=== PATIENT | female | born 2000 | race Caucasian/White ===

== ENCOUNTER 2019-08-06 03:38 | Emergency (ER) | payer OTHER ==
[~2019-08-06] VITALS: Ht 157.5 cm; Wt 128.2 kg
--- NOTE | 2019-08-06 03:45 | NUR ---
RUQ pain that started around 2200 last night. states pain is associated with a lot of gas. pain /10. "comes in wave" at its worse is 03/11.
[2019-08-06] MEDS ORDERED: ONDANSETRON 2MG/ML, 2ML IVPush ONE (04:00)
[2019-08-06] MEDS ORDERED: MORPHINE SULFATE 4 MG/ML, 1ML IVPush PRN (04:00)
[2019-08-06] MEDS ORDERED: ONDANSETRON 2MG/ML, 2ML ONE (04:02)
[2019-08-06] MEDS ORDERED: MORPHINE SULFATE 4 MG/ML, 1ML ONE (04:02)
[2019-08-06 04:12] VITALS: BP 125/83
[2019-08-06 04:12] LABS: BASOPHILS # (AUTO) 0.03 x10^3/uL (0-0.3); BASOPHILS % (AUTO) 0 % (0-1); EOSINOPHILS # (AUTO) 0.24 x10^3/uL (0-0.8); EOSINOPHILS % (AUTO) 2 % (1-7); LYMPHOCYTES # (AUTO) 4.94 x10^3/uL (1-6.1); LYMPHOCYTES % (AUTO) 39 % (22-44); MD NO; MEAN CORPUSCULAR HEMOGLOBIN 19.8 pg (27.0-34.8); MEAN CORPUSCULAR HGB CONC 30.2 g/dL (32.4-35.8); MEAN CORPUSCULAR VOLUME 65.5 fL (80-100); MEAN PLATELET VOLUME 7.1 fL (7.4-10.4); MONOCYTES # (AUTO) 0.97 x10^3/uL (0-1.4); MONOCYTES % (AUTO) 8 % (2-9); NEUTROPHILS # (AUTO) 6.47 x10^3/uL (1.8-8.0); NEUTROPHILS % (AUTO) 51 % (42-75); PLATELET COUNT 722 x10^3/uL (130-400); RED BLOOD COUNT 4.45 x10^6/uL (3.82-5.3); RED CELL DISTRIBUTION WIDTH 19.3 % (9.6-15.2)
[2019-08-06 04:17] LABS: MICROSCOPIC AUTO
[2019-08-06 04:21] LABS: CULTURE INDICATED? YES
[2019-08-06 04:26] LABS: ALANINE AMINOTRANSFERASE 19 U/L (12-78); ALBUMIN 3.1 g/dL (3.4-5.0); ANION GAP 6 mmol/L (5-15); CALCIUM 8.7 mg/dL (8.5-10.1); CHLORIDE 107 mmol/L (98-107); CREATININE 0.87 mg/dL (0.55-1.02)
--- NOTE | 2019-08-06 04:29 | NUR ---
PT TO US AT THIS TIME
[2019-08-06 04:30] LABS: ALKALINE PHOSPHATASE 106 U/L (45-117); BILIRUBIN,TOTAL 0.2 mg/dL (0.2-1.0); TOTAL PROTEIN 8.7 g/dL (6.4-8.2)
== END 2019-08-06 06:07 | disposition home or self-care (01) ==
LOC: ED 06:00
DX: K80.20 Calculus of gallbladder without cholecystitis without obstruction (principal); R10.11 Right upper quadrant pain
CPT/HCPCS: 36415; 76700; 80053; 81001; 83690; 84703; 85025; 87086; 96374; 96375; 99284; J2270; J2405

== ENCOUNTER 2019-09-02 19:11 | Inpatient (IN) | payer OTHER ==
[~2019-09-02] VITALS: Ht 160 cm; Wt 132.0 kg
--- NOTE | 2019-09-02 19:26 | NUR ---
PT PRESENTS TO ED WITH GALL STONES, DX LAST MONTH. REFERRED TO SURGEON AND COULD NOT HAVE SURGERY DUE TO FINANCIAL STRAIN. PT REPORTS PERSISTENT ABDOMINAL PAIN AFTER EATING. PT RECLINED IN BED, RESPIRATIONS EVEN AND UNLABORED ON RA. SIDE RAIL UP. FRIEND AT BEDSIDE.
[2019-09-02] MEDS ORDERED: ONDANSETRON 2MG/ML, 2ML ONE (19:45)
[2019-09-02] MEDS ORDERED: MORPHINE SULFATE 4 MG/ML, 1ML ONE ×2 (19:45→21:49)
[2019-09-02] MEDS ORDERED: HYDROcodone/APAP 5/325 TABLET PO ONE (20:00)
[2019-09-02] MEDS ORDERED: MORPHINE SULFATE 4 MG/ML, 1ML IVPush ONE ×2 (20:00→21:30)
[2019-09-02] MEDS ORDERED: ONDANSETRON 2MG/ML, 2ML IVPush ONE ×2 (20:00→21:30)
[2019-09-02 20:02] LABS: ALANINE AMINOTRANSFERASE 15 U/L (12-78); ALBUMIN 2.9 g/dL (3.4-5.0); ANION GAP 6 mmol/L (5-15); CALCIUM 8.6 mg/dL (8.5-10.1); CHLORIDE 106 mmol/L (98-107)
[2019-09-02 20:04] LABS: ALKALINE PHOSPHATASE 106 U/L (45-117); BILIRUBIN,TOTAL 0.2 mg/dL (0.2-1.0); CREATININE 0.98 mg/dL (0.55-1.02)
--- NOTE | 2019-09-02 20:34 | NUR ---
PT RESTING IN BED, VSS, AWAITING RESULTS, NO COMPLAINTS
[2019-09-02 20:38] LABS: MD SCAN; MEAN CORPUSCULAR HEMOGLOBIN 18.7 pg (27.0-34.8); MEAN CORPUSCULAR HGB CONC 29.6 g/dL (32.4-35.8); MEAN CORPUSCULAR VOLUME 63.1 fL (80-100); MEAN PLATELET VOLUME 7.3 fL (7.4-10.4); PLATELET COUNT 736 x10^3/uL (130-400); RED BLOOD COUNT 4.54 x10^6/uL (3.82-5.3); RED CELL DISTRIBUTION WIDTH 19.3 % (9.6-15.2)
[2019-09-02] MEDS ORDERED: SODIUM CHLORIDE FLUSH 10ML SYR IVF PRN (21:30)
--- NOTE | 2019-09-02 21:56 | NUR ---
PT SITTING UP IN BED, RESPIRATIONS EVEN AND UNLABORED ON RA. ADMINISTERED SECOND DOSE OF PAIN MEDICATION. PT REQUESTS FOOD. CLEARED BY PROVIDER TO EAT BEFORE MIDNIGHT. NAD NOTED AT THIS TIME. SIDE RAILS UP, CALL LIGHT IN REACH. AWAITING ADMIT BED.
[2019-09-02 22:38] VITALS: BP 125/83
[2019-09-02] MEDS ORDERED: SODIUM CHLORIDE 0.9% 1,000 ML IV SCH (23:58)
[2019-09-03] MEDS ORDERED: BISACODYL 10 MG SUPP PR PRN
[2019-09-03] MEDS ORDERED: LIDODERM 5% PATCH TD PRN
[2019-09-03] MEDS ORDERED: ONDANSETRON 2MG/ML, 2ML IVPush PRN
[2019-09-03 00:37] VITALS: BP 93/61
[2019-09-03 06:32] LABS: ALBUMIN 2.7 g/dL (3.4-5.0); ANION GAP 6 mmol/L (5-15); CALCIUM 8.5 mg/dL (8.5-10.1); CHLORIDE 109 mmol/L (98-107)
[2019-09-03 06:38] LABS: ALANINE AMINOTRANSFERASE 11 U/L (12-78); ALKALINE PHOSPHATASE 86 U/L (45-117); BILIRUBIN,TOTAL 0.2 mg/dL (0.2-1.0); CREATININE 0.94 mg/dL (0.55-1.02); TOTAL PROTEIN 7.2 g/dL (6.4-8.2)
[2019-09-03 06:56] LABS: MEAN CORPUSCULAR HEMOGLOBIN 18.8 pg (27.0-34.8); MEAN CORPUSCULAR VOLUME 63.3 fL (80-100); MEAN PLATELET VOLUME 7.3 fL (7.4-10.4); PLATELET COUNT 628 x10^3/uL (130-400); RED BLOOD COUNT 4.36 x10^6/uL (3.82-5.3); RED CELL DISTRIBUTION WIDTH 19.4 % (9.6-15.2)
[2019-09-03 07:01] LABS: MEAN CORPUSCULAR HGB CONC 29.7 g/dL (32.4-35.8)
[2019-09-03 07:36] LABS: MD YES
[2019-09-03 07:38] LABS: BAND#(MANUAL) 0.68 x10^3/uL; BANDS%(MANUAL) 5 % (0-7); EOS#(MANUAL) 0.14 x10^3/uL (0.0-0.8); EOS% (MANUAL) 1 % (1-7); LYMPH#(MANUAL) 4.35 x10^3/uL (1-6.1); LYMPHS% (MANUAL) 32 % (22-44); MONOS#(MANUAL) 0.68 x10^3/uL (0.3-2.7); MONOS% (MANUAL) 5 % (2-9); SEG#(MANUAL) 7.75 x10^3/uL (1.8-8); SEGS% (MANUAL) 57 % (42-75)
[2019-09-03 07:39] LABS: ANISOCYTOSIS 1+; HYPOCHROMIA 2+; MICROCYTOSIS 2+; OVALOCYTES 1+; POLYCHROMASIA 1+
[2019-09-03 07:40] LABS: <PLATELET ESTIMATE> INCREASED; <PLT MORPHOLOGY> NORMAL PLT MORPH
[2019-09-03] MEDS: IRON SUCROSE COMPLEX 100MG/5ML IV SCH (09:20)
[2019-09-03] MEDS: PIPERACILLIN/TAZO/PMX 4.5GM 100 ML IV SCH ×3 (09:20→20:24)
[2019-09-03 10:26] LABS: HCG UR SG 1.023 (1.003-1.030)
[2019-09-03 10:32] LABS: INTERNATIONAL NORMALIZED RATIO 0.99 (0.93-1.1); PROTHROMBIN TIME 10.4 Seconds (9.6-11.5)
[2019-09-03 10:44] VITALS: BP 124/81
[2019-09-03 13:54] VITALS: BP 98/53
[2019-09-03] MEDS ORDERED: BUPIVACAINE/PF 0.5% ONE (15:12)
[2019-09-03] MEDS ORDERED: EPINEPHRINE 1 MG/ML, 1ML ONE (15:13)
[2019-09-03] MEDS ORDERED: FENTANYL PF 100 MCG/2ML ONE ×3 (16:19→18:14)
[2019-09-03] MEDS ORDERED: MIDAZOLAM 1 MG/ML, 2ML ONE (16:19)
[2019-09-03] MEDS ORDERED: FENTANYL PF 250 MCG/5ML ONE (16:50)
[2019-09-03] MEDS ORDERED: LABETALOL 5MG/ML, 20ML IV PRN (17:00)
[2019-09-03] MEDS ORDERED: HYDROmorphone 2 MG/ML, 1ML IVPush PRN (17:00)
[2019-09-03] MEDS ORDERED: DIAZEPAM 5 MG/ML, 2ML IVPush PRN (17:00)
[2019-09-03] MEDS ORDERED: MEPERIDINE/PF 25MG/0.5ML IVPush PRN (17:00)
[2019-09-03] MEDS ORDERED: ACETAMINOPHEN 325 MG TABLET PO PRN (17:00)
[2019-09-03] MEDS ORDERED: KETOROLAC 30 MG/1 ML IV PRN (17:00)
[2019-09-03] MEDS ORDERED: ALBUTEROL SULFATE 2.5 MG/3 ML NPPB PRN (17:00)
[2019-09-03] MEDS ORDERED: PROMETHAZINE 25 MG/ML, 1ML IV PRN (17:00)
[2019-09-03] MEDS ORDERED: hydrALAzine 20 MG/ML, 1ML IV PRN (17:00)
[2019-09-03] MEDS ORDERED: OXYcodone 5 MG/5 ML ORAL.SOL UDC PO PRN (17:00)
[2019-09-03] MEDS ORDERED: SUGAMMADEX 200 MG/2 ML IVPush ONE (17:10)
[2019-09-03] MEDS ORDERED: KETOROLAC 30 MG/1 ML ONE (17:10)
[2019-09-03] MEDS ORDERED: ONDANSETRON 2MG/ML, 2ML ONE (17:11)
[2019-09-03] MEDS ORDERED: GLYCOPYRROLATE 0.2MG/1ML, 5ML ONE (17:11)
[2019-09-03] MEDS ORDERED: DEXAMETHASONE 4 MG/ML, 1ML ONE (17:11)
[2019-09-03] MEDS ORDERED: CEFAZOLIN 1,000 MG ONE (17:11)
[2019-09-03] MEDS ORDERED: ROCURONIUM 10MG/ML,5ML ONE (17:11)
[2019-09-03] MEDS ORDERED: PROPOFOL 10 MG/ML, 20ML ONE (17:11)
[2019-09-03] MEDS ORDERED: SUCCINYLCHOLINE 20 MG/ML, 10ML ONE (17:11)
[2019-09-03] MEDS ORDERED: NEOSTIGMINE 1 MG/ML, 10ML ONE (17:11)
[2019-09-03] MEDS ORDERED: DIAZEPAM 5 MG/ML, 2ML ONE (17:34)
[2019-09-03] MEDS ORDERED: OXYcodone 5 MG/5 ML ORAL.SOL UDC ONE (17:44)
[2019-09-03] MEDS ORDERED: ACETAMINOPHEN 650 MG/20.3 ML UDC ONE (17:44)
[2019-09-03] MEDS: FENTANYL PF 100 MCG/2ML IV PRN ×3 (17:50→18:15)
[2019-09-03 19:15] VITALS: BP 138/84
[2019-09-03] MEDS: morphine SULFATE 10 MG/ML, 1ML IVPush PRN ×2 (19:33→19:57)
[2019-09-03] MEDS: OXYcodone/APAP 5/325MG TABLET PO PRN (22:52)
[2019-09-04 00:32] VITALS: BP 157/73
[2019-09-04] MEDS: PIPERACILLIN/TAZO/PMX 4.5GM 100 ML IV SCH ×2 (02:57→08:43)
[2019-09-04] MEDS: OXYcodone/APAP 5/325MG TABLET PO PRN ×2 (03:01→08:59)
[2019-09-04 04:00] VITALS: BP 110/73
[2019-09-04 05:41] LABS: MEAN CORPUSCULAR HEMOGLOBIN 18.5 pg (27.0-34.8); MEAN CORPUSCULAR HGB CONC 29.8 g/dL (32.4-35.8); MEAN CORPUSCULAR VOLUME 62.2 fL (80-100); MEAN PLATELET VOLUME 7.3 fL (7.4-10.4); PLATELET COUNT 659 x10^3/uL (130-400); RED BLOOD COUNT 4.32 x10^6/uL (3.82-5.3); RED CELL DISTRIBUTION WIDTH 19.2 % (9.6-15.2)
[2019-09-04 05:44] LABS: ALBUMIN 2.8 g/dL (3.4-5.0); ANION GAP 6 mmol/L (5-15); CALCIUM 8.8 mg/dL (8.5-10.1); CHLORIDE 105 mmol/L (98-107)
[2019-09-04 05:57] LABS: ALANINE AMINOTRANSFERASE 20 U/L (12-78); ALKALINE PHOSPHATASE 83 U/L (45-117); BILIRUBIN,TOTAL 0.6 mg/dL (0.2-1.0); TOTAL PROTEIN 7.6 g/dL (6.4-8.2)
[2019-09-04 06:26] LABS: BASOPHILS # (AUTO) 0.02 x10^3/uL (0-0.3); BASOPHILS % (AUTO) 0 % (0-1); EOSINOPHILS % (AUTO) 0 % (1-7); LYMPHOCYTES # (AUTO) 2.15 x10^3/uL (1-6.1); LYMPHOCYTES % (AUTO) 12 % (22-44); MD SCAN; MONOCYTES # (AUTO) 1.11 x10^3/uL (0-1.4); MONOCYTES % (AUTO) 6 % (2-9); NEUTROPHILS # (AUTO) 15.19 x10^3/uL (1.8-8.0); NEUTROPHILS % (AUTO) 82 % (42-75)
[2019-09-04 06:59] VITALS: BP 123/77
[2019-09-04] MEDS: IRON SUCROSE COMPLEX 100MG/5ML IV SCH (08:42)
[2019-09-04] MEDS ORDERED: OXYC-302 PO (11:36)
[2019-09-04] MEDS ORDERED: ONDA4TAB13 PO (11:37)
== END 2019-09-04 12:38 | disposition home or self-care (01) | DRG 418 ==
LOC: ED 20:35 → EDIP 21:19 → 4NE 22:30 → DCLOUNGE 09-04 12:12
PROVIDERS: ADMIT Surgery; ATTEND Family Medicine
PROC: 0FT44ZZ Resection of Gallbladder, Percutaneous Endoscopic Approach (ICD-10-PCS; principal; 2019-09-02)
DX: K80.20 Calculus of gallbladder without cholecystitis without obstruction (principal); Z68.43 Body mass index [BMI] 50.0-59.9, adult; D50.9 Iron deficiency anemia, unspecified; E66.01 Morbid (severe) obesity due to excess calories; F12.20 Cannabis dependence, uncomplicated; R79.89 Other specified abnormal findings of blood chemistry; L73.2 Hidradenitis suppurativa; Z82.49 Family history of ischemic heart disease and other diseases of the circulatory system
CPT/HCPCS: 36415; 84145; 96374; 96375; 96376; 99285; S0020; 76700; 80053; 81025; 82728; 83540; 83550; 83690; 84439; 84443; 84466; 84481; 85025; 85610; 85730; 87040; 88304; G0378; J0171; J0690; J1100; J1756; J1885; J2250; J2405; J2543; J2704; J2710; J3010; J3360; J0330; J2270